=== PATIENT | male | born 1950 | race Caucasian/White ===

== ENCOUNTER 2017-09-26 11:17 | Observation (INO) ==
--- NOTE | 2017-09-26 11:29 | Emergency Department Note ---
Disposition Clinical Impression: Acute exacerbation of chronic obstructive airways disease Disposition: Admitted As Inpatient Condition: Fair Forms: ED Satisfaction Letter Time of Disposition: 14:14 SOB HPI - General Chief Complaint: ED Shortness of Breath/Dyspnea Stated Complaint: "sob, fluid building up" Time Seen by Provider: 09/26/17 11:21 Source: patient, EMS Mode of arrival: EMS Limitations: no limitations Nursing Notes Reviewed: Yes Vital Signs Reviewed: Yes - History of Present Illness 67-year-old male with history COPD comes in with increasing shortness of breath the last 2 weeks. Also notes increasing swelling in his legs. Presents now for evaluation. Pt Subjective Complaint: shortness of breath Onset (ago): week(s) (2) Context: recent illness Severity: moderate Consistency/Duration: constant Improves with: oxygen, bronchodilators Worsens with: exertion Known history of: COPD Associated symptoms: Reports: cough, wheezing Treatment prior to arrival: none Cough present: Yes Cough Description: Involuntary Cough Frequency: Intermittent - Related Data Allergies Allergy/AdvReac Type Severity Reaction Status Date / Time No Known Allergies Allergy Verified 04/30/17 15:10 All systems ED: reviewed and negative except as stated. Constitutional: Denies: fever, chills, weakness, weight change Eyes: Denies: eye pain, eye discharge, vision change ENT ED: Denies: ear pain, throat pain, dental pain, hearing loss, epistaxis, congestion, dysphagia Cardiovascular: Denies: chest pain, palpitations, dyspnea on exertion, edema, syncope Respiratory: Reports: cough, dyspnea, wheezes. Denies: hemoptysis, stridor Gastrointestinal: Denies: abdominal pain, nausea, vomiting, diarrhea, constipation, hematemesis, melena, hematochezia Genitourinary: Denies: urgency, dysuria, frequency, hematuria Musculoskeletal: Denies: back pain, neck pain, arthralgia, myalgia Integumentary: Denies: rash, abrasion, lesions Neurological: Denies: headache, weakness, numbness, paresthesias, confusion, abnormal gait, vertigo Psychiatric: Denies: anxiety, depression, suicidal thoughts, homicidal thoughts , auditory hallucinations, visual hallucinations Endocrine: Denies: fatigue Hematological/Lymphatic: Denies: easy bleeding, easy bruising Allergic/Immunologic: Denies: facial swelling, urticaria Past Medical History - Past Medical History Medical history: Reports: COPD, hypertension Psychiatric history: Reports: no psych history - Social History Smoking Status: Former smoker Smokeless Tobacco Status: No Alcohol use: Reports: none Drug use: Reports: none Physical Exam - General Limitations: no limitations General appearance: alert, in no apparent distress - Head Head exam: atraumatic, normocephalic, normal inspection - Eye Eye exam: Present: normal appearance, PERRL, EOMI - ENT ENT exam: normal exam, normal oropharynx, mucous membranes moist - Neck Neck exam: Present: normal inspection, full ROM, trachea midline - Chest Chest inspection: Present: normal inspection, symmetric chest wall rise - Respiratory Respiratory exam: Present: wheezes, prolonged expiratory phase - Cardiovascular Cardiovascular exam: Present: regular rate, normal rhythm, normal heart sounds - Abdominal Exam Abdominal exam: Present: soft, Non-Tender. Absent: tenderness, distention, guarding, rebound, rigidity - Extremities Exam Extremities exam: Present: normal inspection, full ROM. Absent: tenderness, pedal edema - Expanded Lower Extremity Exam Neurovascular/Tendon exam: Absent: motor deficit, sensory deficit, tendon deficit Gait: not tested/not observed - Back Exam Back exam: Present: normal inspection, full ROM. Absent: tenderness - Neurological Exam Neurological exam: Present: alert, oriented X3 - Psychiatric Psychiatric exam: Present: normal affect, normal mood - Skin Skin exam: Present: warm, dry, intact, normal color Course - Reevaluation(s) Reevaluation #1: 67-year-old with a history COPD comes in with increasing shortness of breath. Also complains of edema. Workup included a BNP was negative. Chest x-ray shows no evidence of failure. Patient will be admitted for exacerbation COPD. Time: 14:13 - Consultations Consultation #1: Accepted by Dr. Kapadia Time: 14:14 Vital Signs Temperature 98.6 F 09/26/17 11:27 Pulse Rate 63 09/26/17 11:27 Respiratory Rate 24 09/26/17 11:27 Blood Pressure 133/107 09/26/17 11:27 O2 Sat by Pulse Oximetry 93 09/26/17 11:27 Temperature 98.6 F 09/26/17 11:27 Pulse Rate 63 09/26/17 11:27 Respiratory Rate 20 09/26/17 12:09 Blood Pressure 133/107 09/26/17 11:27 O2 Sat by Pulse Oximetry 94 09/26/17 12:09 Oxygen Delivery Oxygen Delivery Nasal Cannula Shortness of Breath/Dyspnea - Lab Data Result diagrams: 09/26/17 12:09/26/17 12:01 Lab Results 09/26/17 09/26/17 09/26/17 Range/Units 12: 12: 12:01 WBC 9.7 (4.3-11.1) K/mcL RBC 4.28 (4.19-5.50) M/mcL Hgb 13.9 (12.9-16.9) g/dL Hct 42.3 (37.5-50.1) % MCV 98.8 (83.0-100.0) fL MCH 32.5 (28.0-33.3) pg MCHC 32.9 (31.6-35.5) g/dL RDW 14.0 (11.5-14.5) % Plt Count 201 (140-400) K/mcL MPV 9.0 L (9.4-12.4) fL Immature Gran % 1.7 (0-4) % Seg Neutrophils % 78.0 % Lymphocytes % 12.5 % Monocytes % 4.6 % Eosinophils % 2.5 % Basophils % 0.7 % Neutrophils # 7.5 (1.6-8.9) K/mcL Lymphocytes # 1.2 (0.6-4.6) K/mcL Monocytes # 0.4 (0.0-1.3) K/mcL Eosinophils # 0.2 (0.0-0.6) K/mcL Basophils # 0.1 (0.0-0.2) K/mcL Sodium 145 (136-145) mEq/L Potassium 3.5 (3.5-4.5) mEq/L Chloride 98 (98-109) mEq/L Carbon Dioxide 38 H (19-29) mEq/L BUN 12 (8-26) mg/dL Creatinine 1.05 (0.72-1.25) mg/dL Est GFR ( Amer) > 60 (> 60) Est GFR (Non-Af Amer) > 60 (> 60) BUN/Creatinine Ratio 11 (6-26) Glucose 106 H (70-99) mg/dL Calculated Osmolality 300 (280-300) Lactic Acid 1.5 (0.5-2.2) mmol/L Calcium 9.5 (8.6-10.8) mg/dL Troponin I (0-0.03) ng/mL B-Natriuretic Peptide (0-100) pg/mL 09/26/17 09/26/17 Range/Units 12:01 12:01 WBC (4.3-11.1) K/mcL RBC (4.19-5.50) M/mcL Hgb (12.9-16.9) g/dL Hct (37.5-50.1) % MCV (83.0-100.0) fL MCH (28.0-33.3) pg MCHC (31.6-35.5) g/dL RDW (11.5-14.5) % Plt Count (140-400) K/mcL MPV (9.4-12.4) fL Immature Gran % (0-4) % Seg Neutrophils % % Lymphocytes % % Monocytes % % Eosinophils % % Basophils % % Neutrophils # (1.6-8.9) K/mcL Lymphocytes # (0.6-4.6) K/mcL Monocytes # (0.0-1.3) K/mcL Eosinophils # (0.0-0.6) K/mcL Basophils # (0.0-0.2) K/mcL Sodium (136-145) mEq/L Potassium (3.5-4.5) mEq/L Chloride (98-109) mEq/L Carbon Dioxide (19-29) mEq/L BUN (8-26) mg/dL Creatinine (0.72-1.25) mg/dL Est GFR ( Amer) (> 60) Est GFR (Non-Af Amer) (> 60) BUN/Creatinine Ratio (6-26) Glucose (70-99) mg/dL Calculated Osmolality (280-300) Lactic Acid (0.5-2.2) mmol/L Calcium (8.6-10.8) mg/dL Troponin I 0.02 (0-0.03) ng/mL B-Natriuretic Peptide 18 (0-100) pg/mL - EKG Data EKG attestation: Yes I reviewed and interpreted this EKG. EKG shows normal: Reports: sinus rhythm Heart block present: Reports: 1st Degree Interpretation: Reports: no acute changes
[2017-09-26] MEDS ORDERED: Ipratropium/Albuterol Neb 3 ML IH ONE (11:37)
[2017-09-26 12:13] LABS: Basophils # 0.1 K/mcL (0.0-0.2); Basophils % 0.7 %; Eosinophils # 0.2 K/mcL (0.0-0.6); Eosinophils % 2.5 %; Hematocrit 42.3 % (37.5-50.1); Hemoglobin 13.9 g/dL (12.9-16.9); Immature Granulocytes % 1.7 % (0-4); Lymphocytes # 1.2 K/mcL (0.6-4.6); Lymphocytes % 12.5 %; Mean Corpuscular HGB Conc 32.9 g/dL (31.6-35.5); Mean Corpuscular Hemoglobin 32.5 pg (28.0-33.3); Mean Corpuscular Volume 98.8 fL (83.0-100.0); Monocytes # 0.4 K/mcL (0.0-1.3); Monocytes % 4.6 %; Neutrophils # 7.5 K/mcL (1.6-8.9); Platelet Count 201 K/mcL (140-400); Red Blood Count 4.28 M/mcL (4.19-5.50)
[2017-09-26 12:26] LABS: BUN/Creatinine Ratio 11 (6-26); Blood Urea Nitrogen 12 mg/dL (8-26); Calcium 9.5 mg/dL (8.6-10.8); Carbon Dioxide 38 mEq/L (19-29); Chloride 98 mEq/L (98-109); Glucose 106 mg/dL (70-99); Osmolality,Calculated 300 (280-300); Potassium 3.5 mEq/L (3.5-4.5); Sodium 145 mEq/L (136-145); eGFR For African Americans > 60 (> 60); eGFR For Non-African Americans > 60 (> 60)
[2017-09-26] MEDS ORDERED: Furosemide 40 MG/4 ML VIAL IVP ONE (15:02)
[2017-09-26] MEDS ORDERED: Ondansetron 4 MG/2 ML VIAL IVP PRN (16:23)
[2017-09-26] MEDS ORDERED: Acetaminophen 325 MG TABLET PO PRN (16:23)
[2017-09-26] MEDS ORDERED: Naloxone 0.4 MG/ML INJ IVP PRN (16:23)
[2017-09-26] MEDS ORDERED: *HR* Morphine 2 MG/ML SYRINGE IVP PRN (16:23)
[2017-09-26] MEDS ORDERED: *HR* HYDROcodone/Acet 5/325 mg TABLET PO PRN (16:23)
[2017-09-26] MEDS ORDERED: methylPREDNISolone 125 MG/2 ML VIAL IVP ONE (16:25)
--- NOTE | 2017-09-26 16:32 | Internal Med History&Physical ---
Date of Encounter: 09/26/17 Time of Encounter: 16:31 Assessment and Plan (1) Acute exacerbation of chronic obstructive airways disease Current visit: Yes Status: Acute PFT from 05/2017 noted for severe obstructive and restrictive disease Duonebs q4h Give one time dose of solumedrol Continue with prednisone 40mg po daily a.m Continue O2 supplementation PO Levaquin 500mg daily for bronchitis Monitor closely (2) CHF (congestive heart failure) Current visit: Yes Status: Chronic ECHO from 05/2017 shows mild LVDD< no Pulm HTN Continue home dose of lasix patient is euvolemic, no piting pedal edema, no JVD. CXR is clear , he is on his home dose of )2 BNP is WNL Qualifiers: Congestive heart failure type: diastolic Congestive heart failure chronicity: chronic Qualified Code(s): I50.32 - Chronic diastolic (congestive ) heart failure (3) Morbid obesity Current visit: Yes Status: Chronic BMI 59 Lifestyle modification (4) ILDEFONSO (obstructive sleep apnea) Current visit: Yes Status: Chronic CPAP at bedtime (5) Chronic hypoxemic respiratory failure Current visit: Yes Status: Chronic Continue Home O2 (6) Breast mass in male Current visit: Yes Status: Chronic Continue Tamoxifen Follow up with PCP (7) Gout Current visit: Yes Status: Chronic Continue allopurinol Qualifiers: Gout site: unspecified site Gout etiology: unspecified cause Chronicity: chronic Presence of tophus: without tophus Qualified Code(s): M1A.9XX0 - Chronic gout, unspecified, without tophus (tophi) (8) Urinary retention Current visit: Yes Status: Acute Clamp Urinary catheter and check bladder USS RN informed (9) Hypothyroidism Current visit: Yes Status: Chronic s/p thyroidectomy TSH in 04/2017 19.8 Continue home dose of synthroid Check TSH with am labs Qualifiers: Hypothyroidism type: acquired Qualified Code(s): E03.9 - Hypothyroidism, unspecified Internal Medicine - H&P: HPI Chief complaint: Shortness of breath, cough Admitted From: Home Plans for Post Hospital Care: Home History of present illness: Mr. Garrett is a 67 year old male with PMH of Morbid Obesity, ILDEFONSO on CPAP (Not complaint), COPD, Gout, Breast mass (bilateral, never biopsied per patient), on Tamoxifen, Bed-bound and very sedentary per family. , Chornic Resp failure on home O2. Patient is BIBEMS for complains of cough productive of whitish to yellowish phlegm for the past 2 weeks, associated with worsening shortness of breath. He denies fever or chills, sick contacts, rhinorrhea or myalgias. Patient is not ambulatory and is mostly sedentary so it cannot be established if his SOB is exertional He however did report urinary retention , as he was coughing vigorously at home , he felt " a give or pop in his groin region and has not passed urine since then. He was cathterized in the ER with an output of 1000 cc of urine immediately. He denies chest pain, worsening leg swelling, no diarrhea, he is constipated and has not had a BM in 2-3 days. He denies any other complains Work up in the ER revealed CXR with mild intersitial prominence and cardiomegaly , no infiltrates. Labs are WNL, mild metabolic alkalosis. Past Med Surg Social Fam HX - Past Medical History Medical history: COPD, hypertension, thyroid disease, other (ILDEFONSO) Psychiatric history: no psych history - Past Surgical History Surgical History: knee replacement - Social History Smoking Status: Former smoker Smokeless Tobacco Status: No Alcohol use: none Drug use: none Internal Medicine - H&P: Meds Allopurinol [Zyloprim 300 MG] 300 mg PO DAILY 09/26/17 [History] Budesonide/Formoterol 160/4.5 [Symbicort 160/4.5] 2 puff IH BID 09/26/17 [ History] Furosemide [Lasix] 20 mg PO DAILY 09/26/17 [History] Levothyroxine Sodium 50 mcg PO DAILY 09/26/17 [History] Tamoxifen [Nolvadex] 10 mg PO BID 09/26/17 [History] 3 Allergy/AdvReac Type Severity Reaction Status Date / Time No Known Allergies Allergy Verified 04/30/17 15:10 All Systems PM: A 10-system review of systems was performed and is negative for pertinent findings except as documented above in the HPI. - Constitutional Constitutional: no chills, no fever(s), no night sweats - EENT Eyes: no change in vision, no discharge, no pain, no photophobia Ears: no ear discharge, no ear pain, no tinnitus Nose, mouth and throat: no dysphagia, no nasal discharge, no neck pain, no sore throat - Cardiovascular Cardiovascular ROS IM: as per HPI - Respiratory Respiratory: as per HPI - Gastrointestinal Gastrointestinal: as per HPI - Genitourinary Genitourinary ROS male: as per HPI - Musculoskeletal Musculoskeletal ROS IM: no numbness, no tingling - Integumentary Integumentary IM: no rash, no unusual bruising - Neurological Neurological ROS: no confusion, no convulsions, no focal weakness, no numbness, no tingling, no tremor(s) - Hematologic/Lymphatic Hematologic/Lymphatic: no easy bruising - Constitutional Vitals: Temp Pulse Resp BP Pulse Ox 98.0 F 62 16 147/79 96 09/26/17 16:14 09/26/17 16:14 09/26/17 16:14 09/26/17 16:14 09/26/17 16:14 General appearance: Present: A&O X 3, morbidly obese, pleasant, no acute distress - Head Head exam: Present: atraumatic, normocephalic - ENT ENT exam: Present: mucous membranes moist Additional comments: Normal Right ear autoscopy, TM shiny . No discharges Left ear with wax impaction - Neck Neck exam general surgery: Present: supple, trachea midline. Absent: lymphadenopathy - Respiratory Respiratory exam: Present: CTAB. Absent: accessory muscle use, rales, rhonchi, wheezes - Cardiovascular Cardiovascular exam: Present: RRR, +S1, +S2. Absent: diastolic murmur, gallop, rubs, systolic murmur - GI/Abdominal GI/Abdominal exam: Present: normal bowel sounds, soft, no peritoneal signs. Absent: distended, tenderness - Additional comments: Olivas with clear urine - Extremities Exam Extremities exam: Present: warm, radial pulses palpable and symmetrical. Absent : calf tenderness, cyanotic, pedal edema - Neurological Exam Neurological exam: Present: alert, CN II-XII intact, oriented X3, no focal deficits. Absent: pronater drift, facial droop, speech deficit - Skin Skin exam: Present: dry, intact Internal Med - H&P Results - Labs CBC & Chem 7: 09/26/17 12:01 09/26/17 12:01
[2017-09-26] MEDS: levoFLOXacin 500 MG TABLET PO SCH (17:04)
[2017-09-26] MEDS: Ipratropium/Albuterol Neb 3 ML IH SCH ×2 (19:54→23:36)
[2017-09-27] MEDS: Ipratropium/Albuterol Neb 3 ML IH SCH ×6 (03:49→23:27)
[2017-09-27] MEDS: *HR* Enoxaparin 40 MG/0.4 ML SYRINGE SQ SCH (05:55)
[2017-09-27 06:13] LABS: Basophils % 0.2 %; Hematocrit 40.9 % (37.5-50.1); Hemoglobin 13.4 g/dL (12.9-16.9); Hemoglobin A1C 5.3 %; Immature Granulocytes % 1.3 % (0-4); Lymphocytes # 0.5 K/mcL (0.6-4.6); Mean Corpuscular HGB Conc 32.8 g/dL (31.6-35.5); Mean Corpuscular Hemoglobin 31.8 pg (28.0-33.3); Mean Corpuscular Volume 97.1 fL (83.0-100.0); Mean Platelet Volume 9.2 fL (9.4-12.4); Monocytes # 0.1 K/mcL (0.0-1.3); Neutrophils # 9.4 K/mcL (1.6-8.9); Platelet Count 209 K/mcL (140-400); Red Blood Count 4.21 M/mcL (4.19-5.50); Red Cell Distribution Width 13.5 % (11.5-14.5); Segmented Neutrophils % 92.5 %
[2017-09-27 06:21] LABS: BUN/Creatinine Ratio 14 (6-26); Blood Urea Nitrogen 15 mg/dL (8-26); Calcium 9.5 mg/dL (8.6-10.8); Carbon Dioxide 33 mEq/L (19-29); Chloride 98 mEq/L (98-109); Glucose 173 mg/dL (70-99); Osmolality,Calculated 297 (280-300); Potassium 3.7 mEq/L (3.5-4.5); Sodium 141 mEq/L (136-145); eGFR For African Americans > 60 (> 60); eGFR For Non-African Americans > 60 (> 60)
[2017-09-27 06:43] LABS: Thyroid Stimulating Hormone 4.101 mcIU/mL (0.350-4.840)
[2017-09-27] MEDS: predniSONE 20 MG TABLET PO SCH (08:49)
[2017-09-27] MEDS: levoFLOXacin 500 MG TABLET PO SCH (08:49)
[2017-09-27] MEDS: Furosemide 20 MG TABLET PO SCH (08:49)
--- NOTE | 2017-09-27 10:30 | Internal Med Progress Note ---
Date of Encounter: 09/27/17 Time of Encounter: 10:30 - Assessment and plan (1) Acute exacerbation of chronic obstructive airways disease Current Visit: Yes Status: Acute Assessment and plan: Continue current care (2) CHF (congestive heart failure) Current Visit: Yes Status: Chronic Assessment and plan: Continue current care Qualifiers: Congestive heart failure type: diastolic Congestive heart failure chronicity: chronic Qualified Code(s): I50.32 - Chronic diastolic (congestive ) heart failure (3) Morbid obesity Current Visit: Yes Status: Chronic Assessment and plan: Lifestyle modification BMI 58.2 (4) ILDEFONSO (obstructive sleep apnea) Current Visit: Yes Status: Chronic Assessment and plan: CPAP at bedtime (5) Chronic hypoxemic respiratory failure Current Visit: Yes Status: Chronic (6) Breast mass in male Current Visit: Yes Status: Chronic Assessment and plan: Conitnue home tamoxifen Follow us with PCP (7) Gout Current Visit: Yes Status: Chronic Assessment and plan: Continue allopurinol Qualifiers: Gout site: unspecified site Gout etiology: unspecified cause Chronicity: chronic Presence of tophus: without tophus Qualified Code(s): M1A.9XX0 - Chronic gout, unspecified, without tophus (tophi) (8) Urinary retention Current Visit: Yes Status: Acute Assessment and plan: Olivas has been removed Bladder USS not optimal Continue to monitor (9) Hypothyroidism Current Visit: Yes Status: Chronic Assessment and plan: Continue home dose of synthroid Qualifiers: Hypothyroidism type: acquired Qualified Code(s): E03.9 - Hypothyroidism, unspecified - Subjective Interval history: Seen and evaluated at bedside No new complains Reports clinical improvement - Constitutional Vitals: Temp Pulse Resp BP Pulse Ox 97.5 F L 61 16 139/75 95 09/27/17 06:53 09/27/17 06:53 09/27/17 07:45 09/27/17 06:53 09/27/17 07:45 General appearance: Present: A&O X 3, morbidly obese, pleasant, no acute distress - Head Head exam: Present: atraumatic, normocephalic - Eye Eye exam: Present: PERRL, conjuntiva pink, sclera anicteric Pupils: Present: PERRL - Neck Neck exam general surgery: Present: supple, trachea midline. Absent: lymphadenopathy - Respiratory Respiratory exam: Present: CTAB. Absent: accessory muscle use, rales, rhonchi, wheezes - Cardiovascular Cardiovascular exam: Present: RRR, +S1, +S2. Absent: diastolic murmur, gallop, rubs, systolic murmur - GI/Abdominal GI/Abdominal exam: Present: normal bowel sounds, soft, no peritoneal signs. Absent: distended, tenderness - Extremities Exam Extremities exam: Present: pedal edema (chronic venous stasis changes, non- piting bilateral edema) - Neurological Exam Neurological exam: Present: alert, CN II-XII intact, oriented X3, no focal deficits. Absent: pronater drift, facial droop, speech deficit - Skin Skin exam: Present: dry, intact Internal Medicine: Result - Labs CBC & Chem 7: 09/27/17 05:50 09/27/17 05:50 Labs: Short CBC 09/27/17 Range/Units 05:50 WBC 10.2 (4.3-11.1) K/mcL Hgb 13.4 (12.9-16.9) g/dL Hct 40.9 (37.5-50.1) % Plt Count 209 (140-400) K/mcL Neutrophils # 9.4 H (1.6-8.9) K/mcL BMP 09/27/17 05:50 Sodium 141 Potassium 3.7 Chloride 98 Carbon Dioxide 33 H BUN 15 Creatinine 1.05 Glucose 173 H Calcium 9.5 - Impressions Impressions Bladder Ultrasound 09/26/17 19:30 IMPRESSION: Poor evaluation of urinary bladder due to Olivas catheter placement. D/ / 09/26/2017 20:16:16 [facility] Inter[facility] Provider: Boston Wright MD Consult Discharge Plan - Plan Referrals: Jeff Flores MD [Primary Care Provider] -
--- NOTE | 2017-09-27 17:12 | Electrocardiograph Report ---
[place] [id number] Test Date: 2017-09-26 Pat Name: Daniel Garrett Department: 103 Room: 3B35 Gender: M [place]: WILEY : 1950 Requested By: Everton Lopez Order Number: [id number] Reading MD: Deyanira Barton Measurements Intervals [place] Rate: 61 P: 47 IA: 217 QRS: -58 QRSD: 105 T: 20 QT: 429 QTc: 432 Interpretive Statements SINUS RHYTHM WITH FIRST DEGREE AV BLOCK LEFT ANTERIOR FASCICULAR BLOCK NONSPECIFIC ST ABNORMALITIES Electronically Signed On 09-27-2017 17:10:52 EST by Deyanira Barton
[2017-09-27] MEDS: Sennosides/Docusate Sodium TABLET PO SCH (21:31)
[2017-09-28] MEDS: Ipratropium/Albuterol Neb 3 ML IH SCH ×3 (03:39→11:05)
[2017-09-28] MEDS: *HR* Enoxaparin 40 MG/0.4 ML SYRINGE SQ SCH (05:27)
[2017-09-28] MEDS: Sennosides/Docusate Sodium TABLET PO SCH (08:34)
[2017-09-28] MEDS: Furosemide 20 MG TABLET PO SCH (08:34)
[2017-09-28] MEDS: predniSONE 20 MG TABLET PO SCH (08:34)
[2017-09-28] MEDS: levoFLOXacin 500 MG TABLET PO SCH (08:34)
[2017-09-28 10:54] VITALS: BP 144/74
--- NOTE | 2017-09-28 11:34 | Discharge Summary ---
Date of Encounter: 09/28/17 Time of Encounter: 11:32 - Discharge Diagnosis (1) Acute exacerbation of chronic obstructive airways disease Priority: Primary Status: Acute (2) CHF (congestive heart failure) Priority: Secondary Status: Chronic Qualifiers: Congestive heart failure type: diastolic Congestive heart failure chronicity: chronic Qualified Code(s): I50.32 - Chronic diastolic (congestive ) heart failure (3) Morbid obesity Priority: Secondary Status: Chronic (4) ILDEFONSO (obstructive sleep apnea) Priority: Secondary Status: Chronic (5) Chronic hypoxemic respiratory failure Priority: Secondary Status: Chronic (6) Breast mass in male Priority: Secondary Status: Chronic (7) Gout Priority: Secondary Status: Chronic Qualifiers: Gout site: unspecified site Gout etiology: unspecified cause Chronicity: chronic Presence of tophus: without tophus Qualified Code(s): M1A.9XX0 - Chronic gout, unspecified, without tophus (tophi) (8) Urinary retention Priority: Primary Status: Resolved (9) Hypothyroidism Priority: Secondary Status: Chronic Qualifiers: Hypothyroidism type: acquired Qualified Code(s): E03.9 - Hypothyroidism, unspecified - Discharge Medications Home Medications: Allopurinol [Zyloprim 300 MG] 300 mg PO DAILY 09/26/17 [History] Budesonide/Formoterol 160/4.5 [Symbicort 160/4.5] 2 puff IH BID 09/26/17 [ History] Furosemide [Lasix] 20 mg PO DAILY 09/26/17 [History] Levothyroxine Sodium 50 mcg PO DAILY 09/26/17 [History] Tamoxifen [Nolvadex] 10 mg PO BID 09/26/17 [History] Bed - Hospital [Hospital Bed] 1 each .ROUTE AD #1 each 09/28/17 [Rx] Chair - Lift [LIFT CHAIR] 1 each .ROUTE AD #1 each 09/28/17 [Rx] Sennosides/Docusate Sodium [Senna Plus] 1 each PO BID PRN #30 tablet 09/28/17 [ Rx] levoFLOXacin [Levaquin] 500 mg PO DAILY #4 tablet 09/28/17 [Rx] predniSONE [PredniSONE] 40 mg PO DAILY #8 tablet 09/28/17 [Rx] Allergies/Adverse Reactions: 3 Allergy/AdvReac Type Severity Reaction Status Date / Time No Known Allergies Allergy Verified 04/30/17 15:10 Procedures/tests Complete & Pending: Procedures Performed prior 72 hours Category Date Time Status US bladder/limited pelvis [US] Routine Exams 09/26/17 19:30 Draft Date of admission: 09/26/17 14:36 Primary care physician: Jeff Flores MD Discharging clinician: Isiah Ruelas Anticipated date of discharge: 09/28/17 - Patient Status Disposition: Home, Self-Care Condition: Good Functional capacity at discharge: bed bound Overall status at discharge: patient is progressing back to baseline - Discharge Instructions Follow Up With: Jeff Flores MD [Primary Care Provider] - - Diet and Activity Activity: resume usual activities as tolerated, wear oxygen at all times Diet: low fat, low cholesterol, low salt diet Interval History: See below Hospital course: Mr. Garrett is a 67 year old male bedbound, diastolic CHF, COPD, obstructive sleep apnea, morbid obesity with a BMI of 58.7, Chronic resp failue on home O2 He was admitted and managed for COPD exacerbation. Incidental finding of urinary retention on arrival, relieved by placement of urinary catheter. Patient has made significant improvement. He is seen and examined this morning , he denies new complaints, his breathing is improved. Patient is mostly bedbound and only gets up to go to the bathroom. His urinary retention has resolved since discontinuation of the urinary catheter , patient reports he is making urine adequately. He is clinically stable to be discharged home today, to complete 7 days of levofloxacin, and 5 days of prednisone at home. Home medications will be resumed. Follow-up with primary care doctor. Plan of care discussed with patient and his at the bedside, and he verbalizes understanding. - Time Spent with Patient Total time spent providing and/or coordinating discharge services: Greater than 30 minutes - Constitutional Vitals: Temp Pulse Resp BP Pulse Ox 98.4 F 80 16 144/74 96 09/28/17 10:51 09/28/17 10:51 09/28/17 11:05 09/28/17 10:51 09/28/17 11:05 General appearance: Present: A&O X 3, morbidly obese, pleasant, no acute distress - Head Head exam: Present: atraumatic, normocephalic - Eye Eye exam: Present: PERRL, conjuntiva pink, sclera anicteric Pupils: Present: PERRL - Neck Neck exam general surgery: Present: supple, trachea midline. Absent: lymphadenopathy - Respiratory Respiratory exam: Present: CTAB. Absent: accessory muscle use, rales, rhonchi, wheezes - Cardiovascular Cardiovascular exam: Present: RRR, +S1, +S2. Absent: diastolic murmur, gallop, rubs, systolic murmur - GI/Abdominal GI/Abdominal exam: Present: normal bowel sounds, soft, no peritoneal signs. Absent: distended, tenderness - Extremities Exam Extremities exam: Present: pedal edema (chronic venous stasis changes with trace edema bilaterally), warm, radial pulses palpable and symmetrical. Absent : calf tenderness, cyanotic - Neurological Exam Neurological exam: Present: alert, CN II-XII intact, oriented X3, no focal deficits. Absent: pronater drift, facial droop, speech deficit - Skin Skin exam: Present: dry, intact
== END 2017-09-28 13:46 | disposition home or self-care (01) ==
LOC: 3BNU 11:17 → EMEROO 11:17 → SUATTDRO 14:36 → 3BNU 14:42
PROVIDERS: ADMIT Internal Medicine; ATTEND Internal Medicine

== ENCOUNTER 2020-01-29 09:31 | Inpatient (IN) ==
[2020-01-29] MEDS ORDERED: 0.9 % Sodium Chloride 1,000 ML IVC ONE (09:49)
[2020-01-29] MEDS ORDERED: Ondansetron 4 MG/2 ML VIAL IVP ONE (09:49)
[2020-01-29] MEDS ORDERED: Ketorolac 30 MG/ML VIAL IVP ONE (09:49)
[2020-01-29] MEDS ORDERED: cefTRIAXone 2,000 MG in Water for inj. (sterile) 20 ML IVP ONE (09:49)
[2020-01-29 10:19] LABS: Bilirubin,Urine Negative (Negative); Blood,Urine Negative (Negative); Clarity,Urine Clear (Clear); Color,Urine Yellow (Yellow); Glucose,Urine (UA) Normal (Normal); Ketones,Urine Negative (Negative); Leukocyte Esterase,Urine Negative (Negative); Nitrite,Urine Negative (Negative); PH,Urine 7.5 pH Units (5.0-8.0); Protein,Urine Negative (Neg-Trace); Specific Gravity,Urine 1.013 (1.010-1.025); Urobilinogen,Urine Normal (Normal)
[2020-01-29 10:39] LABS: Basophils % 0.3 %; Eosinophils # 0.1 K/mcL (0.0-0.6); Eosinophils % 1.6 %; Hematocrit 48.5 % (37.5-50.1); Hemoglobin 15.3 g/dL (12.9-16.9); Immature Granulocytes % 0.9 % (0-4); Lymphocytes # 0.7 K/mcL (0.6-4.6); Lymphocytes % 8.1 %; Mean Corpuscular HGB Conc 31.5 g/dL (31.6-35.5); Mean Corpuscular Hemoglobin 32.5 pg (28.0-33.3); Mean Platelet Volume 9.1 fL (9.4-12.4); Monocytes # 0.6 K/mcL (0.0-1.3); Monocytes % 6.9 %; Neutrophils # 7.4 K/mcL (1.6-8.9); Platelet Count 167 K/mcL (140-400); Red Blood Count 4.71 M/mcL (4.19-5.50); Red Cell Distribution Width 13.9 % (11.5-14.5); Segmented Neutrophils % 82.2 %
[2020-01-29 10:48] LABS: Prothrombin Time 11.1 Seconds (9.4-12.1)
[2020-01-29 10:50] LABS: Activated Partial Thrombo Time 33.4 Seconds (26.0-36.0)
[2020-01-29 11:01] LABS: Alanine Aminotransferase 8 Units/L (7-52); Albumin 3.6 g/dL (3.5-5.7); Albumin/Globulin Ratio 1.2 (1.1-2.2); Alkaline Phosphatase 101 Units/L (34-104); Aspartate Amino Transferase 18 Units/L (13-39); BUN/Creatinine Ratio 16 (6-26); Bilirubin,Total 0.5 mg/dL (0.3-1.0); Blood Urea Nitrogen 13 mg/dL (8-23); Calcium 9.4 mg/dL (8.6-10.3); Carbon Dioxide 39 mEq/L (23-29); Chloride 100 mEq/L (98-107); Globulin 2.9 g/dL (2.4-3.5); Glucose 82 mg/dL (70-105); Osmolality,Calculated 297 (280-300); Potassium 3.8 mEq/L (3.5-5.1); Sodium 144 mEq/L (136-145); Total Protein 6.5 g/dL (6.4-8.9); Troponin I < 0.03 ng/mL (< 0.04); eGFR For African Americans > 60 (> 60); eGFR For Non-African Americans > 60 (> 60)
[2020-01-29] MEDS ORDERED: Isovue-370 500 ML BOTTLE IVP ONE (11:03)
[2020-01-29 11:14] LABS: Thyroid Stimulating Hormone 6.449 mcIU/mL (0.340-5.600)
[2020-01-29 12:23] LABS: ABG Base Excess 8 mEq/L (-2 to 3); ABG HCO3 41 mEq/L (21-27); ABG Oxygen Saturation 98 % (95-98); ABG PCO2 93 mmHg (35-45); ABG PH 7.25 pH Units (7.32-7.45); ABG PO2 127 mmHg (85-104); ABG TCO2 43 mEq/L (20-26)
[2020-01-29] MEDS ORDERED: Budesonide/Formoterol 160/4.5 1 PUFF INH IH PRN (12:26)
[2020-01-29] MEDS ORDERED: Naloxone 0.4 MG/ML INJ IVP PRN (12:26)
[2020-01-29] MEDS: *HR* Heparin 5,000 UNIT/ML VIAL SQ SCH ×2 (15:25→21:07)
[2020-01-29] MEDS: Azithromycin 250 MG TABLET PO SCH (15:25)
[2020-01-29] MEDS: MethylPREDNISolone 40 MG/ML VIAL IVP SCH (15:25)
[2020-01-29] MEDS: Ipratropium/Albuterol Neb 3 ML IH SCH ×4 (15:48→23:12)
[2020-01-29] MEDS ORDERED: MethylPREDNISolone 40 MG/ML VIAL IVP SCH (16:00)
[2020-01-29 16:17] LABS: ABG Base Excess 14 mEq/L (-2 to 3); ABG HCO3 47 mEq/L (21-27); ABG Oxygen Saturation 95 % (95-98); ABG PCO2 97 mmHg (35-45); ABG PH 7.29 pH Units (7.32-7.45); ABG PO2 89 mmHg (85-104); ABG TCO2 50 mEq/L (20-26)
[2020-01-29] MEDS: Budesonide/Formoterol 160/4.5 1 PUFF INH IH SCH (19:52)
[2020-01-29 20:22] LABS: ABG Base Excess 10 mEq/L (-2 to 3); ABG HCO3 42 mEq/L (21-27); ABG Oxygen Saturation 89 % (95-98); ABG PCO2 90 mmHg (35-45); ABG PH 7.27 pH Units (7.32-7.45); ABG PO2 69 mmHg (85-104); ABG TCO2 45 mEq/L (20-26)
[2020-01-29 23:44] LABS: ABG Base Excess 9 mEq/L (-2 to 3); ABG HCO3 41 mEq/L (21-27); ABG Oxygen Saturation 91 % (95-98); ABG PCO2 84 mmHg (35-45); ABG PH 7.29 pH Units (7.32-7.45); ABG PO2 71 mmHg (85-104); ABG TCO2 43 mEq/L (20-26)
[2020-01-30 03:37] LABS: Basophils % 0.3 %; Hematocrit 48.6 % (37.5-50.1); Hemoglobin 15.1 g/dL (12.9-16.9); Immature Granulocytes % 0.7 % (0-4); Lymphocytes # 0.5 K/mcL (0.6-4.6); Lymphocytes % 6.3 %; Mean Corpuscular HGB Conc 31.1 g/dL (31.6-35.5); Mean Corpuscular Hemoglobin 33.1 pg (28.0-33.3); Mean Corpuscular Volume 106.6 fL (83.0-100.0); Mean Platelet Volume 9.4 fL (9.4-12.4); Monocytes # 0.1 K/mcL (0.0-1.3); Monocytes % 1.5 %; Neutrophils # 6.6 K/mcL (1.6-8.9); Platelet Count 158 K/mcL (140-400); Red Blood Count 4.56 M/mcL (4.19-5.50); Red Cell Distribution Width 14.1 % (11.5-14.5); Segmented Neutrophils % 91.2 %; White Blood Count 7.2 K/mcL (4.3-11.1)
[2020-01-30] MEDS: Ipratropium/Albuterol Neb 3 ML IH SCH ×6 (03:44→23:31)
[2020-01-30 03:55] LABS: BUN/Creatinine Ratio 21 (6-26); Blood Urea Nitrogen 15 mg/dL (8-23); Calcium 9.6 mg/dL (8.6-10.3); Carbon Dioxide 38 mEq/L (23-29); Chloride 100 mEq/L (98-107); Glucose 129 mg/dL (70-105); Osmolality,Calculated 295 (280-300); Phosphorous 3.6 mg/dL (2.7-4.5); Potassium 4.5 mEq/L (3.5-5.1); Sodium 141 mEq/L (136-145); eGFR For African Americans > 60 (> 60); eGFR For Non-African Americans > 60 (> 60)
[2020-01-30] MEDS: *HR* Heparin 5,000 UNIT/ML VIAL SQ SCH ×3 (05:30→20:02)
[2020-01-30] MEDS: MethylPREDNISolone 40 MG/ML VIAL IVP SCH ×2 (05:30→17:08)
[2020-01-30] MEDS: Budesonide/Formoterol 160/4.5 1 PUFF INH IH SCH ×2 (07:28→19:47)
[2020-01-30] MEDS: Azithromycin 250 MG TABLET PO SCH (08:09)
[2020-01-30] MEDS: Bumetanide 1 MG TABLET PO SCH (08:09)
[2020-01-30] MEDS: allopurinoL 300 MG TABLET PO SCH (08:09)
[2020-01-30 09:00] LABS: VBG HCO3 40 mEq/L (21-27); VBG PCO2 64 mmHg (41-51); VBG PO2 126 mmHg (25-50)
[2020-01-30 15:20] LABS: Adenovirus Not Detected (Not Detect); Bordetella Pertussis Not Detected (Not Detect); Chlamydophila pneumoniae Not Detected (Not Detect); Coronavirus 229E Not Detected (Not Detect); Coronavirus HKU1 Not Detected (Not Detect); Coronavirus NL63 Not Detected (Not Detect); Coronavirus OC43 Not Detected (Not Detect); Human Metapneumovirus Not Detected (Not Detect); Human Rhinovirus/Enterovirus Not Detected (Not Detect); Influenza A Subtype 2009 H1 Not Detected (Not Detect); Influenza B Not Detected (Not Detect); Parainfluenza Virus 1 Not Detected (Not Detect); Parainfluenza Virus 2 Not Detected (Not Detect); Parainfluenza Virus 3 Not Detected (Not Detect); Parainfluenza Virus 4 Not Detected (Not Detect); Respiratory Syncytial Virus Not Detected (Not Detect)
[2020-01-30 15:21] LABS: Mycoplasma pneumoniae Not Detected (Not Detect)
[2020-01-31] MEDS: Ipratropium/Albuterol Neb 3 ML IH SCH ×6 (04:12→23:46)
[2020-01-31] MEDS: MethylPREDNISolone 40 MG/ML VIAL IVP SCH (05:46)
[2020-01-31] MEDS: *HR* Heparin 5,000 UNIT/ML VIAL SQ SCH ×3 (05:46→22:51)
[2020-01-31] MEDS: Budesonide/Formoterol 160/4.5 1 PUFF INH IH SCH ×2 (07:40→19:56)
[2020-01-31] MEDS: allopurinoL 300 MG TABLET PO SCH (07:55)
[2020-01-31] MEDS: Bumetanide 1 MG TABLET PO SCH (07:55)
[2020-01-31] MEDS: Aspirin Enteric Coated 81 MG Tablet PO SCH (07:55)
[2020-01-31] MEDS: Azithromycin 250 MG TABLET PO SCH (07:56)
[2020-01-31 08:20] LABS: Hematocrit 48.4 % (37.5-50.1); Hemoglobin 15.1 g/dL (12.9-16.9); Mean Corpuscular HGB Conc 31.2 g/dL (31.6-35.5); Mean Corpuscular Volume 102.5 fL (83.0-100.0); Platelet Count 148 K/mcL (140-400); Red Blood Count 4.72 M/mcL (4.19-5.50); Red Cell Distribution Width 13.6 % (11.5-14.5); White Blood Count 9.2 K/mcL (4.3-11.1)
[2020-01-31 09:27] LABS: VBG HCO3 40 mEq/L (21-27); VBG PCO2 65 mmHg (41-51); VBG PH 7.39 pH Units (7.32-7.42); VBG PO2 183 mmHg (25-50)
[2020-01-31 09:37] LABS: BUN/Creatinine Ratio 30 (6-26); Blood Urea Nitrogen 20 mg/dL (8-23); Calcium 9.8 mg/dL (8.6-10.3); Carbon Dioxide 36 mEq/L (23-29); Chloride 96 mEq/L (98-107); Glucose 128 mg/dL (70-105); Osmolality,Calculated 292 (280-300); Potassium 3.7 mEq/L (3.5-5.1); Sodium 139 mEq/L (136-145); eGFR For African Americans > 60 (> 60); eGFR For Non-African Americans > 60 (> 60)
[2020-02-01 02:22] LABS: VBG HCO3 41 mEq/L (21-27); VBG PCO2 67 mmHg (41-51); VBG PH 7.39 pH Units (7.32-7.42); VBG PO2 188 mmHg (25-50)
[2020-02-01 02:40] LABS: BUN/Creatinine Ratio 35 (6-26); Blood Urea Nitrogen 21 mg/dL (8-23); Calcium 9.3 mg/dL (8.6-10.3); Carbon Dioxide 38 mEq/L (23-29); Chloride 96 mEq/L (98-107); Glucose 114 mg/dL (70-105); Osmolality,Calculated 292 (280-300); Potassium 3.4 mEq/L (3.5-5.1); Sodium 139 mEq/L (136-145); eGFR For African Americans > 60 (> 60); eGFR For Non-African Americans > 60 (> 60)
[2020-02-01] MEDS: Ipratropium/Albuterol Neb 3 ML IH SCH ×4 (03:53→16:06)
[2020-02-01] MEDS: *HR* Heparin 5,000 UNIT/ML VIAL SQ SCH ×2 (05:45→13:27)
[2020-02-01] MEDS: Budesonide/Formoterol 160/4.5 1 PUFF INH IH SCH (07:21)
[2020-02-01] MEDS ORDERED: Potassium Chloride Elixir 20 MEQ/15 ML UDC PO ONE (07:41)
[2020-02-01] MEDS: Azithromycin 250 MG TABLET PO SCH (08:06)
[2020-02-01] MEDS: Aspirin Enteric Coated 81 MG Tablet PO SCH (08:06)
[2020-02-01] MEDS: Bumetanide 1 MG TABLET PO SCH (08:06)
[2020-02-01] MEDS: allopurinoL 300 MG TABLET PO SCH (08:07)
[2020-02-01] MEDS ORDERED: MethylPREDNISolone 40 MG/ML VIAL IVP SCH (09:00)
[2020-02-01 16:15] VITALS: BP 148/72
== END 2020-02-01 17:15 | disposition home health service (06) | DRG 190 ==
LOC: 2ANU 09:31 → EMEROOARM 09:31 → SUATTDRO 13:36 → 2ANU 14:35
PROVIDERS: ADMIT Internal Medicine; ATTEND Internal Medicine